=== PATIENT | male | born 1940 | race Hispanic/Latino ===

== ENCOUNTER 2019-09-13 07:11 | Observation (INO) | payer MEDICARE ==
[2019-09-10 12:31] LABS: BASOPHILS % 0.3 % (0.0-1.0); EOSINOPHILS # (AUTO) 0.1 (0.0-0.4); EOSINOPHILS % 0.9 % (0.0-6.0); HEMATOCRIT 34.8 % (38.2-49.6); LYMPHOCYTES # (AUTO) 1.3 (1.0-3.2); LYMPHOCYTES % 19.2 % (18.0-39.1); MEAN CORPUSCULAR HEMOGLOBIN 28.4 pg (28-32); MEAN CORPUSCULAR HGB CONC 31.6 g/dL (31-35); MEAN CORPUSCULAR VOLUME 89.7 fL (81-99); MONOCYTES # (AUTO) 0.7 (0.2-0.8); MONOCYTES % 9.9 % (4.4-11.3); NEUTROPHILS # (AUTO) 4.6 (2.1-6.9); NEUTROPHILS % 69.4 % (38.7-80.0); PLATELET COUNT 198 x10e3/uL (140-360); RED BLOOD COUNT 3.88 x10e6/uL (4.3-5.7); RED CELL DISTRIBUTION WIDTH 14.4 % (11.7-14.4)
[2019-09-10 12:48] LABS: ANION GAP 13.1 mmol/L (8-16); BLOOD UREA NITROGEN 23 mg/dL (7-26); BUN/CREATININE RATIO 24 (6-25); CALCIUM 11.5 mg/dL (8.4-10.2); CARBON DIOXIDE 22 mmol/L (22-29); CHLORIDE 103 mmol/L (98-107); CREATININE, SERUM 0.94 mg/dL (0.72-1.25); EST GLOMERULAR FILTRATION RATE > 60 ML/MIN (60-); GLUCOSE 159 mg/dL (74-118); POTASSIUM 4.1 mmol/L (3.5-5.1); SODIUM 134 mmol/L (136-145)
--- NOTE | 2019-09-10 13:04 | Diagnostic Imaging Report ---
EXAMINATION: CHEST 2 VIEWS INDICATION: Pre-operative COMPARISON: None FINDINGS: LINES/TUBES:None LUNGS:The lungs are well-inflated. No focal consolidation or pulmonary edema. Mild bibasilar subsegmental atelectasis. PLEURA:No pleural effusion or pneumothorax. MEDIASTINUM:The cardiomediastinal silhouette appears normal in size and shape. Atherosclerotic calcifications of the thoracic aorta. BONES/SOFT TISSUES:No acute osseous injury. ABDOMEN:No free air under the diaphragm. IMPRESSION: No focal pneumonia or pulmonary edema. Signed by: Georgi Gonzalez MD on 09/10/2019 1:01 PM
[~2019-09-13] VITALS: Ht 170.2 cm; Wt 88.0 kg
[~2019-09-13 07:11] MED LIST: ALENDRONATE SOD70 MG PO; AMLODIPINE BESY10 MG PO; ASPIR 8181 MG PO; ATORVASTATIN CA20 MG PO; AVODART0.5 MG PO; CLOTRIMAZOLE-BE15 GM TOP; FINASTERIDE5 MG PO; FLOMAX0.4 MG PO; FLONASE ALLERG9.9 ML; LOSARTAN POTAS100 MG PO; METFORMIN HCL500 MG PO; METOPROLOL SUCC25 MG PO; NAPROXEN250 MG PO; OMEPRAZOLE40 MG PO; ULTRAM 50MG50 MG PO
--- OUTSIDE RECORDS SUMMARY | 2019-09-13 07:15 | XMS REPORT ---
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 Allergies, Adverse Reactions, Alerts Allergy Name Allergy Type Status Severity Reaction(s) Onset Date Inactive Date Treating Clinician Comments No Known Allergies DA Active U 2014-07-26 00:00:00 Medications This patient has no known medications. Results Test Description Test Time Test Comments Text Results Atomic Results Result Comments CHEST 2 VIEWS 2019-09-10 13:00:00 [place] [id number] Patient Name: SHEREE OSPINA MR #: [id number] : 1940 Age/Sex: 79/M Req #: [id number] Adm Physician: Ordered by: BENITA CORCORAN MD Report #: [id number] Location: OR Room/Bed: Procedure: [id number] DX/CHEST 2 VIEWS Exam Date: 09/10/19 Exam Time: 1243 REPORT STATUS: Signed EXAMINATION: CHEST 2 VIEWS INDICATION: Pre-operative COMPARISON: None FINDINGS: LINES/TUBES:None LUNGS:The lungs are well-inflated. No focal consolidation or pulmonary edema. Mild bibasilar subsegmental atelectasis. PLEURA:No pleural effusion or pneumothorax. MEDIASTINUM:The cardiomediastinal silhouette appears normal in size and shape. Atherosclerotic calcifications of the thoracic aorta. BONES/SOFT TISSUES:No acute osseous injury. ABDOMEN:No free air under the diaphragm. IMPRESSION: No focal pneumonia or pulmonary edema. Signed by: Stephanie Gonzalez MD on 09/10/2019 1:01 PM Dictated By: STEPHANIE GONZALEZ MD [id number] Transcribed By: KANU on 09/10/19 1301 COPY TO: BENITA CORCORAN MD
[2019-09-13] MEDS ORDERED: CEFTRIAXONE SOD 1 GM/NS 50 ML 50 ML IV ONE (07:53)
[2019-09-13] MEDS ORDERED: B&O 60MG R/S 60 MG SUPP PR ONE (08:20)
[2019-09-13] MEDS ORDERED: MORPHINE SULFATE INJ 4 MG/ML INJ 1ML ONE ×2 (10:24→10:57)
--- NOTE | 2019-09-13 13:20 | NUR ---
RECEIVED PATIENT FROM PACU. PATIENT A/O X3, EVEN RESPIRATIONS ON RA. BOWEL SOUNDS ACTIVE, NO EDEMA. LUNG SOUNDS CLEAR TO AUSCULTATION. RIGHT WRIST 20 GAUGE IV WITH 1/2NS @ 100 CC/HR. NO PAIN AT THIS TIME. LIND IN PLACE WITH CBI, URINE JORGENSEN COLOR. VS STABLE. BED LOW, WHEELS LOCKED, SIDE RAILS X2. CALL LIGHT IN REACH WILL CONTINUE TO MONITOR PATIENT.
[2019-09-13] MEDS ORDERED: SEVOFLURANE INHAL SOLN 250 ML PEN BTL ONE (14:00)
[2019-09-13] MEDS ORDERED: PROPOFOL IV EMULSION 10 MG/ML 20 ML VIAL ONE (14:00)
[2019-09-13] MEDS ORDERED: ACETAMINOPHEN/CODEINE 300MG - 30MG TAB PO PRN (14:00)
[2019-09-13] MEDS ORDERED: DEXAMETHASONE SOD PHOS INJ 4 MG/ML VIAL ONE (14:00)
[2019-09-13] MEDS ORDERED: ONDANSETRON HCL INJ 2MG/ML 2ML 2 MG/ML VIAL ONE (14:00)
[2019-09-13] MEDS: SODIUM CHLORIDE 0.45% 1,000 ML IV SCH ×2 (14:16→23:24)
[2019-09-13] MEDS ORDERED: FENTANYL CITRATE/PF 100MCG/2 ML INJ ONE (14:23)
[2019-09-13] MEDS ORDERED: TRIMETHOPRIM/SULFAMETHOXAZOLE 160-800 MG TAB PO SCH (14:30)
[2019-09-13 14:39] VITALS: BP 146/72
[2019-09-13 15:51] VITALS: BP 146/72
[2019-09-13 15:53] VITALS: BP 140/72
[2019-09-13 15:55] VITALS: BP 146/72
--- NOTE | 2019-09-13 16:17 | NUR ---
SPOKE WITH DR. CORCORAN, HUMALOG SLIDING SCALE ORDERED.
[2019-09-13] MEDS: INSULIN LISPRO 100 UNIT/1 ML 3ML VIAL SQ SCH ×2 (16:30→21:23)
[2019-09-13] MEDS ORDERED: DEXTROSE 50% SYRINGE 50 ML IV PRN (16:30)
[2019-09-13] MEDS: METOPROLOL SUCCINATE 25 MG TAB XL PO SCH (17:38)
[2019-09-13 20:00] VITALS: BP 132/67
[2019-09-13 20:45] VITALS: BP 132/67
[2019-09-13] MEDS ORDERED: ATORVASTATIN 20 MG TAB PO SCH (21:00)
[2019-09-13] MEDS ORDERED: ATORVASTATIN 40 MG TAB PO SCH (21:00)
[2019-09-14 00:18] VITALS: BP 125/60
[2019-09-14 04:00] VITALS: BP 151/67
[2019-09-14] MEDS ORDERED: TRIMETHOPRIM/SULFAMETHOXAZOLE 160-800 MG TAB PO SCH (06:00)
--- NOTE | 2019-09-14 06:41 | NUR ---
nuno pulled out by Dr. Cohen.
[2019-09-14] MEDS: INSULIN LISPRO 100 UNIT/1 ML 3ML VIAL SQ SCH ×2 (07:30→11:30)
[2019-09-14] MEDS ORDERED: METFORMIN HCL 500 MG TAB PO SCH (08:00)
[2019-09-14 08:12] VITALS: BP 148/89
[2019-09-14 08:49] VITALS: BP 148/89
[2019-09-14] MEDS ORDERED: AMLODIPINE BESYLATE 10 MG TAB PO SCH (09:00)
[2019-09-14] MEDS ORDERED: LOSARTAN POTASSIUM 100 MG TAB PO SCH (09:00)
[2019-09-14] MEDS ORDERED: PANTOPRAZOLE SOD 40 MG TABEC PO SCH (09:00)
[2019-09-14] MEDS: METOPROLOL SUCCINATE 25 MG TAB XL PO SCH (09:00)
[2019-09-14] MEDS ORDERED: TAMSULOSIN HCL 0.4 MG CAP PO SCH (09:00)
[2019-09-14] MEDS ORDERED: FINASTERIDE 5 MG TAB PO SCH (09:00)
[2019-09-14] MEDS ORDERED: DUTASTERIDE 0.5 MG CAP PO SCH (09:00)
--- NOTE | 2019-09-14 09:15 | NUR ---
VIA TRANSLATION, AM MEDICATIONS GIVEN, PT TOLERATED WELL, DENIES PAIN AT THIS TIME
--- NOTE | 2019-09-14 09:30 | NUR ---
PT VOIDED 400ML DARK RED URINE
[2019-09-14] MEDS: SODIUM CHLORIDE 0.45% 1,000 ML IV SCH (10:24)
[2019-09-14] MEDS ORDERED: TYLENOL WITH C1 EACH PO (10:56)
[2019-09-14] MEDS ORDERED: BACTRIM DS TAB1 EACH PO (10:57)
[2019-09-14 12:00] VITALS: BP 127/71
--- NOTE | 2019-09-14 12:04 | NUR ---
PT VOIDED 200ML DARK RED URINE, PT DENIES PAIN AT THIS TIME, CALL LIGHT WITHIN REACH
--- NOTE | 2019-09-14 12:55 | NUR ---
DISCHARGE INSTRUCTIONS REVIEWED WITH PT AND FAMILY, VERBALIZED UNDERSTANDING, NURSE ASSISTED PT TO GET DRESSED, WHEELED OFF UNIT VIA WC FOR DISCHARGE, NO CHANGE IN CONDITION
--- NOTE | 2019-09-27 17:32 | Operative Report ---
DATE OF PROCEDURE: 09/13/2019 SURGEON: Guille Cohen MD PREOPERATIVE DIAGNOSIS: Bladder obstruction. POSTOPERATIVE DIAGNOSIS: Bladder obstruction. PROCEDURE PERFORMED: Cystoscopy, transurethral resection of the prostate. ANESTHESIA: General anesthesia. ESTIMATED BLOOD LOSS: Minimal. INDICATIONS: Mr. Rocha is a 79-year-old gentleman with a long history of bladder outlet obstruction and prior episode of retention. He now presents for definitive surgical management of his problem. PROCEDURE IN DETAIL: The patient was brought in the operative room, placed in supine position. After administration of general anesthesia, was placed in dorsal lithotomy position and prepped and draped in the usual sterile fashion. Cystourethroscopy was performed using 20-Bermudian cystoscope. The anterior and posterior urethra were noted to be normal. The prostate revealed a short fossa with lateral lobe hyperplasia and mild elevation of median bar. The bladder was entered with minimal difficulty. Upon entrance into the bladder, the ureteral orifices were in normal anatomical position and produce clear efflux. There were no mucosal lesions identified. There was grade 2 trabeculations noted throughout the bladder. The bladder was left full and the cystoscope and sheath were removed. A 26-Bermudian resectoscope sheath was then placed in a retrograde fashion and Energy Micro resectoscope was used to perform the procedure. Beginning at the 1 o'clock position and proceeding in a clockwise fashion down to the 6 o'clock position, all of the adenomatous tissue between the bladder neck and the veru was resected down to the level of the surgical capsule. There was no gross penetration or perforation of the capsule noted. A similar procedure was performed on the contralateral side in a counter-clockwise fashion again beginning at the 11 o'clock position and then proceeding down to the 6 o'clock position. Again, hemostasis was obtained using electrocautery device. The residual tissue on the roof of floor of the gland was then resected free and Ellik evacuator was used to remove all chips. These were subsequently sent to pathology for microscopic analysis. Once adequate hemostasis was secured, the bladder was left full and the resectoscope and sheath were removed. The patient was noted to have a good urinary flow with coude. A 24-Bermudian coude catheter was placed in a retrograde fashion and the balloon inflated with approximately 45 mL of sterile water. The urinary efflux was noted to be blood tinged. The patient was started on continuous bladder irrigation and returned to supine position. He was transferred to bed and taken to the postanesthesia care unit in good condition. Of note, the needle and instrument count were correct at the conclusion of the case. MD GARY Adler/MONIQUE /[id number]
== END 2019-09-14 12:55 | disposition home or self-care (01) ==
LOC: OR 07:11 → PACU V 10:03 → MED/SURG 13:48
PROVIDERS: ADMIT Urology; ATTEND Urology
DX: N40.1 Benign prostatic hyperplasia with lower urinary tract symptoms (principal); N32.0 Bladder-neck obstruction; N13.8 Other obstructive and reflux uropathy; R33.8 Other retention of urine
CPT/HCPCS: 36415 ×3; 52630; 71046; 80048; 82948 ×2; 85025; 88305; 93005; G0378 ×2; J0696; J1100; J2270; J2405; J2704; J3010; S0164